=== PATIENT | male | born 1995 | race African-American/Black ===

== ENCOUNTER 2022-07-01 11:41 | Emergency (ER) | payer SELFPAY ==
[2022-07-01 11:55] VITALS: BP 126/71; PULSE 68; RESP 16; TEMP 36.1; O2SAT 99
--- NOTE | 2022-07-01 12:14 | ED.MALEGU ---
HPI - Male Genitourinary General Chief complaint: Urogenital-Male Stated complaint: STD testing Time Seen by Provider: 07/01/22 12:04 Source: patient and RN notes reviewed Mode of arrival: ambulatory Limitations: no limitations History of Present Illness HPI Narrative: 27 y/o male presented for concern for std. States he has been exposed to someone who stated they have herpes. Also states that story changed a few times. Pt denies any skin lesions to cole area, urethral discharge, dysuria, fever. Related Data Allergies Allergy/AdvReac Type Severity Reaction Status Date / Time No Known Allergies Allergy Verified 07/01/22 12:19 Review of Systems Review of Systems: CONSTITUTIONAL: Denies body aches, fever, chills, or sweats. CARDIOVASCULAR: Denies chest pain, palpitations, or edema. RESPIRATORY: Denies cough or dyspnea. GASTROINTESTINAL: Denies abdominal pain, nausea, vomiting, or diarrhea. GENITOURINARY: Denies dysuria, frequency, discharge, hesitancy, hematuria, cole area lesions SKIN: Denies rash, itching, or wounds. MUSCULOSKELETAL: Denies back pain or myalgia. PMFSH Comments At time of signature, I have reviewed and agree with nursing past medical, surgical, social and family history unless otherwise noted. Please see nursing chart for further information. There is no relevant family history pertinent to the presenting complaint Exam Narrative: GENERAL: Well-appearing ENT: Mucous membranes pink and moist. CHEST: Clear to auscultation. HEART: Regular rate and rhythm. ABDOMEN: Soft, nontender, nondistended, normal active bowel sounds. : No apparent penile lesions/vesicles (exam witnessed by JASWINDER Loza) SKIN: Warm, dry, no rash. PSYCH: Normal affect. Course Course Emergency Course: Patient is aware of diagnosis, understands and agrees to treatment plan. Anticipatory guidance given. Patient agrees to follow-up as directed and is aware of reasons to seek care at the emergency department. Portions of this record may have been created with voice recognition software Level of Care: Express Care Visit Vital Signs Vital signs: Vital Signs Temperature 97.0 F L 07/01/22 11:55 Pulse Rate 68 07/01/22 11:55 Respiratory Rate 16 07/01/22 11:55 Blood Pressure 126/71 07/01/22 11:55 Pulse Oximetry 99 07/01/22 11:55 Oxygen Delivery Room Air 07/01/22 11:55 Temperature 97.0 F L 07/01/22 11:55 Pulse Rate 68 07/01/22 11:55 Respiratory Rate 16 07/01/22 11:55 Blood Pressure 126/71 07/01/22 11:55 Pulse Oximetry 99 07/01/22 11:55 Oxygen Delivery Room Air 07/01/22 11:55 Reviewed MDM - Male Genitourinary MDM Narrative Medical decision making narrative: Patient presenting with concern for STD. Urine specimen collected for GC, chlamydia, trich. Informed Pt will be contacted w/ results when they become available if they are positive. Discussed with patient that it takes up to 7 days for results of cultures to be released and explained that we may treat empirically at this time. Declines treatment at this time and will return should tests be positive. We discussed his concern re herpes and other blood borne std's and will f/u with health dpt. Rx for valacyclovir should he develop symptoms. I have instructed the patient to return to the ER at any time if there are any new or worsening symptoms. The patient expressed understanding of and agreement with this plan. Differential Diagnosis Differential diagnosis: Likely urinary tract infection, urethritis and genital herpes simplex Lab Data Labs: Lab Results 07/01/22 07/01/22 Range/Units 12:15 12:15 C.trachomatis RNA (TMA) Pending N.gonorrhoeae RNA (TMA) Pending T. vaginalis Amp RNA Pending Discharge Plan Discharge Clinical Impression: Concern about STD in male without diagnosis Patient Disposition: Home, Self-Care Condition: Stable Instructions: Genital Herpes Simplex (ED), Oral Herpes Simplex Vi
== END 2022-07-01 12:27 | disposition home or self-care (01) ==
PROVIDERS: Emergency Provider Nurse Practitioner Family
DX: Z20.2 Contact with and (suspected) exposure to infections with a predominantly sexual mode of transmission (principal)
CPT/HCPCS: 87491; 87591; 87661; 99203; G0463